=== PATIENT | male | born 1975 | race African-American/Black ===

== ENCOUNTER 2023-08-29 22:04 | Emergency (ER) | payer BC, SELFPAY ==
--- NOTE | ~2023-08-29 | XR_ITS ---
Right Hand Technique: PA, oblique, and lateral views were obtained. Clinical History: Dog bite Findings: No acute fracture or dislocation is seen. Osseous alignment is anatomic. Joint spaces are p reserved. Soft tissues are unremarkable. Impression: Unremarkable right hand. Reviewed, dictated and finalized at location M. L PRESS OPERATOR Impression: Unremarkable right hand.
[2023-08-29 22:07] VITALS: BP 166/96; PULSE 85; RESP 16; TEMP 36.3; O2SAT 100
[2023-08-29 22:32] VITALS: BP 148/88; PULSE 84; RESP 16; TEMP 36.9; O2SAT 98
[2023-08-29] MEDS: TETANUS,DIPHTHERIA,AC PERTUSSIS ADULT (0.5 ML) BOOSTRIX IM (23:03)
[2023-08-30] MEDS: metroNIDAZOLE 250 MG TABLET 500 MG PO (00:52)
[2023-08-30] MEDS: HYDROcodone/acetaminophen (*CRX) 5-325 MG TABLET 1 TAB PO (00:53)
[2023-08-30] MEDS: SULFAMETHOXAZOLE/TRIMETHOPRIM 800/160 MG DS TABLET 1 TAB PO (00:53)
--- NOTE | 2023-08-30 00:55 | ED.ANIMALBIT ---
HPI - Animal Bite General Chief Complaint: Animal Bite Stated Complaint: dog bite Time Seen by Provider: 08/29/23 22:49 Source: patient Mode of arrival: ambulatory Limitations: no limitations History of Present Illness HPI narrative: Patient is a 47-year-old male who presents to ED with report of dog bite to his right hand. Patient reports he had just given his dog a treat and went to pet him on his head when his dog suddenly clamped onto his right hand. He sustained several puncture wounds to his right hand and fingers with a larger laceration in the webspace between his 3rd and 4th digits. Patient reports his dog is up-to-date on its vaccines. Patient's tetanus is unknown. Denies any numbness or tingling. Related Data Allergies Allergy/AdvReac Type Severity Reaction Status Date / Time Penicillins Allergy Unknown Verified 08/29/23 22:05 Review of Systems Review of Systems: CONSTITUTIONAL: Denies fever, chills, or sweats. SKIN: See HPI. MUSCULOSKELETAL: See HPI. NEUROLOGIC: Denies tingling, numbness, or weakness. All systems reviewed & are unremarkable except as noted in HPI and below Exam Narrative: GENERAL: Well appearing, well-nourished, non-toxic, in no acute distress. RESPIRATORY: Airway patent, respirations nonlabored. CARDIOVASCULAR: Regular rate and rhythm without murmurs, rubs, or gallops. Radial pulses 2+ and equal bilaterally. MUSCULOSKELETAL: Moves all extremities. Scattered small puncture wounds to R hand and 2nd/3rd digits. Two punctures wounds located on flexor surface of these digits. Larger 1.5cm gaping laceration to his R dorsal hand between the webspace between his 3rd/4th digits, no active bleeding. SKIN: Warm, dry, normal color. No rashes. NEURO: A&O X3. Speech clear. Cranial nerves II-XII grossly intact. Steady gait. No ataxic movements. PSYCHIATRIC: Appropriate mood and affect. Normal interaction. Course Vital Signs Vital signs: Vital Signs Temperature 97.4 F L 08/29/23 22:07 Pulse Rate 85 08/29/23 22:07 Respiratory Rate 16 08/29/23 22:07 Blood Pressure 166/96 H 08/29/23 22:07 Pulse Oximetry 100 08/29/23 22:07 Oxygen Delivery Room Air 08/29/23 22:07 Temperature 98.4 F 08/30/23 01:08 Pulse Rate 67 08/30/23 01:08 Respiratory Rate 15 08/30/23 01:08 Blood Pressure 144/83 H 08/30/23 01:08 Pulse Oximetry 98 08/30/23 01:08 Oxygen Delivery Room Air 08/29/23 22:07 Procedures Laceration Laceration 1: Date: 08/30/23 Time: 00:40 Site: hand Side (If applicable): right Size (cm): 1.5 Description: linear Depth: simple, single layer Local Anesthetic: lidocaine 1% Amount of anesthesia used (mL): 3 Pre-repair: wound explored, irrigated and irrigated extensively ====== Skin Level ====== Skin layer closed with: nylon Size (cm): 4-0 Number of sutures: 1 Technique: simple, interrupted ====== Subcutaneous Layer ====== ====== Muscle Layer ====== ====== Tendon Layer ====== MDM - Animal Bite MDM Narrative Medical decision making narrative: Patient presented to ED with dog bite to right hand. His own dog. UTD on vaccines. Mostly small puncture wounds to the hand and fingers, but 1 larger laceration between the 3rd and 4th digits. X-ray interpreted by myself w/o evidence of fracture of radiopaque FB. Wounds were irrigated thoroughly. The larger laceration was loosely approximated with 1 suture given the gaping nature. Tetanus status updated in the ED. Patient with PCN allergy, will start patient on Bactrim and Flagyl per UTD guidelines. Advised to monitor wounds extremity closely for signs of infection. Given strict return precautions. D/C in stable condition. Medical Records Attestation: I reviewed the patient's medical records. Imaging Data Attestation: I personally reviewed and interpreted this imaging study as follows: My impression: RASHAD Ugarte
[2023-08-30 01:08] VITALS: BP 144/83; PULSE 67; RESP 15; TEMP 36.9; O2SAT 98
== END 2023-08-30 01:09 | disposition home or self-care (01) ==
PROVIDERS: Emergency Provider Physician Assistant; PCP Nurse Practitioner Family
DX: S61.451A Open bite of right hand, initial encounter (principal); S61.250A Open bite of right index finger without damage to nail, initial encounter; S61.252A Open bite of right middle finger without damage to nail, initial encounter; Z23 Encounter for immunization; W54.0XXA Bitten by dog, initial encounter
CPT/HCPCS: 12001; 73130; 90471; 90715; 99283; A9270